=== PATIENT | male | born 1965 | race Caucasian/White ===

== ENCOUNTER 2017-07-26 09:00 | Emergency (ER) | payer OTHER ==
[2017-07-26 09:20] VITALS: TEMP 98.6
[2017-07-26] MEDS ORDERED: TDAP ADULT 0.5 ML INJ (BOOSTRIX) IM ONE (09:29)
--- NOTE | 2017-07-26 09:35 | EDPHY ---
H & P Smoking Status: Former smoker Time Seen by Provider: 07/26/17 09:25 HPI/ROS: CHIEF COMPLAINT: Right 3rd and 4th digit laceration HISTORY OF PRESENT ILLNESS: 51-year-old male with out-of-date tetanus, works [employer], was at work, flipped on a switched and there was a sharp metal object in place which he sustained a skin laceration and avulsion to his right 3rd and 4th digits. Complaint pain to same area. No paresthesia. No flexor deficit. PHYSICAL EXAM (Prior to examination, patient consented to physical exam, hands were washed and my usual and customary physical exam procedures followed) 1) GENERAL: Well-developed, well-nourished, alert and oriented. Appears to be in no acute distress. 2) HEAD: Normocephalic 3) HEENT: sclera anicteric 4) LUNGS: Breathing comfortably. 5) SKIN: laceration and skin avulsion to the right 3rd and 4th digit, see further description under musculoskeletal exam 6) MUSCULOSKELETAL: right 3rd digit: FDP and FDS function intact. There is a 2 cm x 1 cm superficial skin avulsion on the middle phalanx palmar aspect, up on the proximal aspect there is a 2 mm laceration x2. Full sensation and two-point discrimination intact distally. Right 4th digit FDP FDS function intact . On the middle phalanx there is a 2 cm linear laceration.. Full sensation two-point discrimination intact. 7) NEUROLOGIC: Full sensation two-point discrimination intact affected digit (Jillian,Malik Thuy) Constitutional: Initial Vital Signs Temperature (C) 37.0 C 07/26/17 09:18 Heart Rate 79 07/26/17 09:18 Respiratory Rate 16 07/26/17 09:18 Blood Pressure 156/88 H 07/26/17 09:18 O2 Sat (%) 98 07/26/17 09:18 O2 Delivery Mode Room Air Allergies/Adverse Reactions: adhesive tape Allergy (Verified 07/26/17 09:24) penicillin G Allergy (Verified 07/26/17 09:17) Home Medications: Medication Instructions Recorded Cephalexin [Keflex] 500 mg PO QID 7 Days cap 07/26/17 Levothyroxine 07/26/17 Lisinopril 07/26/17 MDM/Departure - MDM Procedures: Procedure: Laceration repair. I explained the indications, risks and benefits for both laceration repair and anesthetic administration. Verbal consent was obtained from the patient . The laceration on the 3rd and 4th digits were anesthetized using 0.5% bupivicaine without epinephrine digital nerve block. After anesthetic administered the patient was observed for a period of time and had no apparent adverse effects. The wound was cleaned, prepped, draped in normal sterile fashion and explored to its base. No foreign body seen, no foreign bodies palpated. There were no deep structures involved. No tendon injury was identified. The 4th digit laceration was closed with 5 simple interrupted 5 O Ethilon sutures. The foot 3rd digit skin avulsion had Surgicel applied as the skin avulsion was actively slowly bleeding. There were 2 small lacerations were closed with a total of 2 simple interrupted 5 O Prolene sutures. The wound repair was complex. The procedure was performed by myself. Patient has been informed that scarring will occur, although efforts have been made to minimize this. (Malik Walsh) Medications Given: Discontinued Medications Diphtheria/Tetanus/Acell Pertussis (Boostrix) 0.5 ml IM .ONCE ONE Stop: 07/26/17 09:30 Last Admin: 07/26/17 09:32 Dose: 0.5 ml ED Course/Re-evaluation: This is a work comp related injury. No gross flexor deficits. I did recommend follow up with Hand surgery. He is noted to have a skin avulsion to the palmar aspect of the 3rd digit. This may require skin grafting. In the meantime Surgicel has been placed, he will follow up with Hand surgery, started on prophylactic Keflex. Usual and customary wound precautions and instructions provided.Care of patient under supervision of secondary supervising physician Dr Wright . (Malik Walsh) The patient was evaluated and managed by the physician logging assistant. I have reviewed this chart and I agree with the findings and plan of care as documented , as indicated by my signature. I am the secondary supervising physician. ( Verena Wright) - Depart Disposition: Home, Routine, Self-Care Clinical Impression: Finger laceration Qualifiers: Encounter type: initial encounter Finger: unspecified finger Damage to nail status: without damage Foreign body presence: without foreign body Laterality: right Qualified Code(s): S61.219A - Laceration without foreign body of unspecified finger without damage to nail, initial encounter Condition: Good Instructions: Finger Laceration (ED) Stand Alone Forms: Work Limited Duty Prescriptions: Cephalexin [Keflex] 500 mg PO QID 7 Days cap Referrals: Antonio Rutledge MD [Medical Doctor] - 07/29/17
[2017-07-26 10:51] VITALS: BP 150/80; PULSE 82; RESP 14; O2SAT 96
== END 2017-07-26 10:50 | disposition home or self-care (01) ==
PROC: 0HQFXZZ Repair Right Hand Skin, External Approach (ICD-10-PCS; principal; 2017-07-26)
DX: S61.212A Laceration without foreign body of right middle finger without damage to nail, initial encounter (principal); S61.214A Laceration without foreign body of right ring finger without damage to nail, initial encounter; Z23 Encounter for immunization; Z87.891 Personal history of nicotine dependence; W45.8XXA Other foreign body or object entering through skin, initial encounter; Y92.213 High school as the place of occurrence of the external cause; Y99.0 Civilian activity done for income or pay; Y93.89 Activity, other specified